=== PATIENT | male | born 1990 | race Caucasian/White ===

== ENCOUNTER 2016-11-03 17:46 | Emergency (ER) | payer OTHER ==
[2016-11-03 18:06] VITALS: BP 146/92
[2016-11-03] MEDS ORDERED: Cephalexin CAP* 500 MG PO ONE (18:27)
--- NOTE | 2016-11-03 18:58 | UC ---
Skin Complaint HPI - HPI Summary HPI Summary: TWO TENDER FIRM AREAS ON RIGHT ABDOMEN ALONG STRETCH TOMPKINS (RECENTLY INTENTIONALLY LOST WEIGHT). NO FEVER. TRIED TO DRAIN THEM HIMSELF WITH OTC DIBETES NEEDLE SEVERAL DAUYS AGO - History of Current Complaint Chief Complaint: UCWounds Time Seen by Provider: 11/03/16 18:14 Stated Complaint: SORE ON STOMACH Hx Obtained From: Patient Onset/Duration: Gradual Onset, Lasting Weeks, Still Present Skin Exposure Onset/Duration: Weeks Ago Onset Severity: Mild Current Severity: Mild Location: Discrete - RIGHT ABDOMEN Character: Redness, Raised, Painful Aggravating: Touch Alleviating: Nothing Associated Signs & Symptoms: Positive: Drainage, Tenderness. Negative: Fever, Chills, Abdominal Pain - Allergy/Home Medications Allergies/Adverse Reactions: Allergies Allergy/AdvReac Type Severity Reaction Status Date / Time No Known Allergies Allergy Verified 11/03/16 18:06 Review of Systems Constitutional: Negative Skin: Other - TWO SMALL INDURATED AREAS ALONG STRETCH JEANETH OF RIGHT ABDOMEN Eyes: Negative ENT: Negative Respiratory: Negative Cardiovascular: Negative Gastrointestinal: Negative Genitourinary: Negative Motor: Negative Neurovascular: Negative Musculoskeletal: Negative Neurological: Negative Psychological: Negative All Other Systems Reviewed And Are Negative: Yes PMH/Surg Hx/FS Hx/Imm Hx Previously Healthy: Yes - Surgical History Surgical History: None - Family History Known Family History: Negative: Diabetes, Other - NO KELOIDS - Social History Occupation: Student Alcohol Use: None Substance Use Type: None Smoking Status (MU): Never Smoked Tobacco Physical Exam Triage Information Reviewed: Yes Appearance: Well-Appearing, No Pain Distress, Well-Nourished Vital Signs: Initial Vital Signs Temp 98 F 11/03/16 18:02 Pulse 96 11/03/16 18:02 Resp 18 11/03/16 18:02 BP 146/92 11/03/16 18:02 Pulse Ox 97 11/03/16 18:02 Vital Signs Reviewed: Yes Eye Exam: Normal ENT Exam: Normal ENT: Positive: Normal ENT inspection Dental Exam: Normal Neck exam: Normal Neck: Positive: Supple, Nontender, No Lymphadenopathy Respiratory Exam: Normal Respiratory: Positive: Chest non-tender, Lungs clear, Normal breath sounds Cardiovascular Exam: Normal Cardiovascular: Positive: RRR, No Murmur Abdomen Description: Positive: Nontender, No Organomegaly, Other: - TWO SMALL INDURATED TENDER AREAS ALONG STRETCH JEANETH OF RIGHT ABDOMEN Musculoskeletal Exam: Normal Neurological Exam: Normal Psychological Exam: Normal Skin: Positive: rashes - TWO SMALL INDURATED TENDER AREAS ALONG STRETCH JEANETH OF RIGHT ABDOMEN Course/Dx - Differential Diagnoses - Skin Complaint Differential Diagnoses: Abscess, Cellulitis, Impetigo, Tinea, Urticaria, Varicella Zoster - Diagnoses Provider Diagnoses: CELLULITIS RIGHT ABDOMEN. ABSCESS RIGHT ABDOMEN Discharge - Discharge Plan Condition: Stable Disposition: HOME Prescriptions: Cephalexin CAP* [Keflex CAP*] 500 mg PO QID #40 cap Patient Education Materials: Cellulitis (ED), Abscess (ED) [facility] - Images Front/Back of Body, Lg ([place]): 1 - 1CM X 0.5 CM INDURATED AREA ON STRETCH JEANETH 2 - 3CM X 2CM INDURATED AREA ALONG STRETCH JEANETH
== END 2016-11-03 19:02 | disposition home or self-care (01) ==
LOC: UCEAST 17:46
DX: L03.311 Cellulitis of abdominal wall (principal); L02.91 Cutaneous abscess, unspecified
CPT/HCPCS: 87070; 87205; 87640; 87641; 99202; A9270-GY; G0463

== ENCOUNTER 2017-01-04 11:12 | Emergency (ER) | payer OTHER ==
[2017-01-04 11:38] VITALS: BP 114/77
--- NOTE | 2017-01-04 12:13 | UC ---
Skin Complaint HPI - HPI Summary HPI Summary: Pt presents to with complaint of "abscess" on right buttock. Pt states had an abscess on his abdomen was draiining + MRSA. Pt states was placed on antibiotics with resolution. Pt states 2 days ago noted a swelling on right buttock. Pt state mild TTP. No drainage. NO fevers, chills, rash. Painful to touch. NO analgesia taken. No change to bowel/bladder. Not immunocompromised. - History of Current Complaint Chief Complaint: UCSkin Time Seen by Provider: 01/04/17 12:11 Stated Complaint: LUMP ON BACK Hx Obtained From: Patient Onset/Duration: Gradual Onset Onset Severity: Mild Current Severity: Mild Pain Intensity: 4 Pain Scale Used: 0-10 Numeric Location: Discrete - right buttock Aggravating: Nothing Alleviating: Nothing Associated Signs & Symptoms: Positive: Negative, Tenderness. Negative: Rash, Drainage - Allergy/Home Medications Allergies/Adverse Reactions: Allergies Allergy/AdvReac Type Severity Reaction Status Date / Time Shellfish Allergy Allergy Intermediate Hives Verified 01/04/17 11:31 Review of Systems Constitutional: Negative Skin: Other - right buttock Eyes: Negative ENT: Negative Respiratory: Negative Cardiovascular: Negative Gastrointestinal: Negative Genitourinary: Negative Motor: Negative Neurovascular: Negative Musculoskeletal: Negative Neurological: Negative Psychological: Negative All Other Systems Reviewed And Are Negative: Yes PMH/Surg Hx/FS Hx/Imm Hx Previously Healthy: Yes - Surgical History Surgical History: None - MRSA abscess - no I+D - Family History Known Family History: Negative: Diabetes, Other - NO KELOIDS - Social History Occupation: Employed Full-time Alcohol Use: None Substance Use Type: None Smoking Status (MU): Never Smoked Tobacco Physical Exam Triage Information Reviewed: Yes Appearance: Well-Appearing, No Pain Distress, Well-Nourished Vital Signs: Initial Vital Signs Temp 98.6 F 01/04/17 11:32 Pulse 79 01/04/17 11:32 Resp 16 01/04/17 11:32 BP 114/77 01/04/17 11:32 Pulse Ox 99 01/04/17 11:32 Vital Signs Reviewed: Yes Eyes: Negative: Discharge ENT: Positive: Hearing grossly normal Neck: Positive: Supple, Nontender Respiratory: Positive: Chest non-tender, Lungs clear, Normal breath sounds Cardiovascular: Positive: RRR, No Murmur, Pulses Normal Abdomen Description: Positive: Nontender, No Organomegaly, Soft Bowel Sounds: Positive: Present Musculoskeletal Exam: Normal Neurological Exam: Normal Psychological Exam: Normal Skin: Positive: Other - right mid buttock, pt with slight inflammed follicle. minimal erythema No drainage, no fluctuance. No induration Course/Dx - Course Course Of Treatment: Pt with small, inflammed follicle right buttock. No drainable collection appreciated on exam. will start Doxycycline. frequent, warm soaks. motirn/apap. return precautions - Diagnoses Provider Diagnoses: folliculitis Discharge - Discharge Plan Condition: Stable Disposition: HOME Prescriptions: DOXYcycline CAP(*) [DOXYcycline 100MG CAP(*)] 100 mg PO BID #14 cap Patient Education Materials: Folliculitis (ED) Referrals: No Primary Care Phys,NOPCP [Primary Care Provider] - Additional Instructions: - Stay well hydrated, drink plenty of non-alcoholic, non-caffinated beverage - Take doxycycline as prescribed until gone - Apply warm, wet soaks to your inflammed area - 3 time a day for 15 minutes - Okay to alternate ibuprofen (Advil, Motrin) and tylenol every 3 hours as needed for pain - take with food - do NOT take for more than 4-5 days - Contact your doctor or review for increased pain, swelling, fevers, or any other concerns
== END 2017-01-04 12:33 | disposition home or self-care (01) ==
LOC: UCEAST 11:12
DX: L73.9 Follicular disorder, unspecified (principal); Z86.14 Personal history of Methicillin resistant Staphylococcus aureus infection; Z91.013 Allergy to seafood
CPT/HCPCS: 99212; G0463

== ENCOUNTER 2017-02-03 15:42 | Emergency (ER) | payer OTHER ==
[2017-02-03 15:56] VITALS: BP 118/72
--- NOTE | 2017-02-03 16:59 | UC ---
Agata Montoya Alok, scribed for Reed Heredia MD on 02/03/17 at 1652 . Skin Complaint HPI - HPI Summary HPI Summary: 26M presents to the [facility] for a rash on his hips bilaterally and buttocks for the past 3 days and spreading since. Pt states that he is fairly active and can' t always change his clothes after sports activity. Pt describes his rash is pruritus. Pt states he applied Cortisone today. Pt denies new soaps or detergents. Pt denies rash on his groin. - History of Current Complaint Chief Complaint: UCSkin Time Seen by Provider: 02/03/17 16:44 Stated Complaint: RASH - Allergy/Home Medications Allergies/Adverse Reactions: Allergies Allergy/AdvReac Type Severity Reaction Status Date / Time Shellfish Allergy Allergy Intermediate Hives Verified 02/03/17 15:49 Review of Systems Constitutional: Negative Skin: Rash All Other Systems Reviewed And Are Negative: Yes PMH/Surg Hx/FS Hx/Imm Hx - Surgical History Surgical History: None - Family History Known Family History: Negative: Diabetes, Other - NO KELOIDS - Social History Occupation: Employed Full-time Alcohol Use: None Substance Use Type: None Smoking Status (MU): Never Smoked Tobacco - Immunization History Most Recent Influenza Vaccination: unsure Most Recent Tetanus Shot: unsure Physical Exam Triage Information Reviewed: Yes Appearance: Well-Appearing, No Pain Distress Vital Signs: Initial Vital Signs Temp 98.5 F 02/03/17 15:50 Pulse 69 02/03/17 15:50 Resp 17 02/03/17 15:50 BP 118/72 02/03/17 15:50 Pulse Ox 99 02/03/17 15:50 Vital Signs Reviewed: Yes Eyes: Positive: Other: - EOMI, YVETTE ENT: Positive: Normal ENT inspection Neck: Positive: Supple, Nontender Respiratory: Positive: Lungs clear, Normal breath sounds Cardiovascular: Positive: RRR Abdomen Description: Positive: Nontender, Soft Bowel Sounds: Positive: Present Musculoskeletal Exam: Normal Musculoskeletal: Positive: Strength Intact, ROM Intact Neurological: Positive: Alert, Other: - Sensory/Motor intact Psychological: Positive: Other: - affect/mood appropriate Skin: Positive: Other - Dry, irritated skin on both buttocks with nothing in the creases. Course/Dx - Course Course Of Treatment: Patient medications reviewed this visit. NO RASH IN CREASES. NO VESICLES OR DRAINAGE. WILL TREAT WITH CLOTRIMAZOLE AND F/U WITH PMD. - Diagnoses Provider Diagnoses: RASH B/L BUTTOCKS. Discharge - Discharge Plan Condition: Stable Disposition: HOME Prescriptions: Clotrimazole 1% CREAM* [Clotrimazole 1%*] 1 applic TOPICAL BID #1 tube Patient Education Materials: Acute Rash (ED) Referrals: No Primary Care Phys,NOPCP [Primary Care Provider] - Additional Instructions: FOLLOW UP WITH YOUR DOCTOR. GET RECHECKED FOR ANY WORSENING OF YOUR CONDITION OR QUESTIONS OR CONCERNS. The documentation as recorded by the Agata gu Alok accurately reflects the service I personally performed and the decisions made by me, Reed Heredia MD.
== END 2017-02-03 17:21 | disposition home or self-care (01) ==
LOC: UCEAST 15:42
DX: R21 Rash and other nonspecific skin eruption (principal)
CPT/HCPCS: 99212; G0463

== ENCOUNTER 2017-08-14 09:20 | Emergency (ER) | payer OTHER ==
[2017-08-14 10:02] VITALS: BP 123/86
--- NOTE | 2017-08-14 10:40 | RAD ---
HISTORY: Productive cough COMPARISONS: None VIEWS: 4: Frontal dual-energy and lateral views of the chest. FINDINGS: CARDIOMEDIASTINAL SILHOUETTE: The cardiomediastinal silhouette is normal. LIVIA: The livia are normal. PLEURA: The costophrenic angles are sharp. No pleural abnormalities are noted. LUNG PARENCHYMA: The lungs are clear. ABDOMEN: The upper abdomen is clear. There is no subphrenic gas. BONES AND SOFT TISSUES: No bone or soft tissue abnormalities are noted. OTHER: None. IMPRESSION: NO ACTIVE CARDIOPULMONARY DISEASE.
[2017-08-14] MEDS ORDERED: Acetaminophen ADULT LIQ* 650 MG/20.3 ML UDC PO ONE (10:45)
--- NOTE | 2017-08-15 18:47 | UC ---
Cezar Montoya Nilda, scribed for Vidal Prado MD on 08/14/17 at 1018 . Respiratory Complaint HPI - HPI Summary HPI Summary: This patient is a 26 year old M presenting to [facility] with a chief complaint of constant nonproductive cough for the past 3 weeks that worsened yesterday. The patient rates the pain 0/10 in severity. Symptoms aggravated and alleviated by nothing. Patient reports congestion and CP with coughing. Patient denies sore throat, and rhinorrhea. Pt states he had a recent trip to [facility] and believes he inhaled a lot of smoke. He was treated with abx recently with no relief. - History of Current Complaint Chief Complaint: UCGeneralIllness Stated Complaint: COUGH, FEVER Time Seen by Provider: 08/14/17 10:09 Hx Obtained From: Patient Onset/Duration: Sudden Onset, Lasting Weeks Timing: Constant Pain Intensity: 0 Pain Scale Used: 0-10 Numeric Character: Cough: Nonproductive Aggravating Factors: Nothing Alleviating Factors: Nothing Associated Signs And Symptoms: Positive: Pleuritic Chest Pain, Nasal Congestion - Allergies/Home Medications Allergies/Adverse Reactions: Allergies Allergy/AdvReac Type Severity Reaction Status Date / Time MS Shellfish Allergy Allergy Intermediate Hives Verified 08/14/17 10:03 [Shellfish Allergy] Dust AdvReac Coughing Uncoded 08/14/17 10:03 Home Medications: Home Medications Cetirizine* [ZyrTEC 10 MG TAB*] 2 tab PO DAILY 08/14/17 [History Confirmed 08/14] Fluticasone NASAL SPRAY 50MCG* [Flonase NASAL SPRAY 50MCG*] 1 spray NASAL DAILY 08/14/17 [History Confirmed 08/14/17] PMH/Surg Hx/FS Hx/Imm Hx - Additional Past Medical History Additional PMH: Jaundice as a child - Surgical History Surgical History: None - Family History Known Family History: Negative: Diabetes, Other - NO KELOIDS - Social History Alcohol Use: None Substance Use Type: None Smoking Status (MU): Never Smoked Tobacco - Immunization History Most Recent Influenza Vaccination: unsure Most Recent Tetanus Shot: unsure Review of Systems ENT: Sinus Congestion, Other - negative sore throat and rhinorrhea Respiratory: Cough Cardiovascular: Chest Pain - with coughing All Other Systems Reviewed And Are Negative: Yes Physical Exam Triage Information Reviewed: Yes Vital Signs: Initial Vital Signs Temp 100.3 F 08/14/17 09:56 Pulse 110 08/14/17 09:56 Resp 20 08/14/17 09:56 BP 123/86 08/14/17 09:56 Pulse Ox 100 08/14/17 09:56 Vital Signs Reviewed: Yes - Additional Comments VITAL SIGNS: Reviewed. GENERAL: Patient is a well developed and nourished M who is lying comfortable in the stretcher. Patient is not in any acute respiratory distress. HEAD AND FACE: Normocephalic EYES: PERRLA, EOMI x 2. EARS: Hearing grossly intact. NOSE: Nasal mucosa erythematous MOUTH: Oropharynx within normal limits. NECK: Supple, trachea is midline, no adenopathy, no JVD, no carotid bruit. CHEST: Symmetric, no tenderness at palpation LUNGS: Clear to auscultation bilaterally. No wheezing or crackles. CVS: Regular rate and rhythm, S1 and S2 present, no murmurs or gallops appreciated. ABDOMEN: Soft, non-tender. Bowel sounds are normal. No abdominal abnormal pulsations. EXTREMITIES: Full ROM in all major joints, no edema, no cyanosis or clubbing. NEURO: Alert and oriented x 3. No acute neurological deficits. Speech is normal and follows commands. SKIN: Dry and warm Diagnostic Evaluation - Laboratory O2 Sat by Pulse Oximetry: 100 - Radiology Radiology Interpretation Completed By: Radiologist - CXR reveals no active cardiopulmonary disease. Dr. Prado has reviewed this radiology report. Respiratory Course/Dx - Course Course Of Treatment: This patient is a 26 year old M presenting to [facility] with a chief complaint of constant nonproductive cough for the past 3 weeks that worsened yesterday. The patient rates the pain 0/10 in severity. Symptoms aggravated and alleviated by nothing. Patient reports congestion and CP with coughing. Patient denies sore throat, and rhinorrhea. Pt states he had a recent trip to [place] and believes he inhaled a lot of smoke. Influenza A positive. Influenza B negative. CXR, per radiolgist, reveals no active cardiopulmonary disease. Dr. Prado has reviewed this radiology report. Pt is stable and will be D/C with a Dx of influenza and a prescription for Tamiflu. In UC, pt was given acetaminophen. I discussed all the findings and test results with the patient. Pt was instructed to return to the urgent care or go to ER immediately if any of the symptoms return or worsens. Plan of care was discussed with the patient and pt understands and agrees. All questions were answered to patient satisfaction. There were no further complaints or concerns. - Differential Dx/Diagnosis Differential Diagnosis/HQI/PQRI: Bronchitis, Influenza, Laryngitis, Sinusitis Provider Diagnoses: Influenza Discharge - Discharge Plan Condition: Stable Disposition: HOME Prescriptions: Oseltamivir CAP* [Tamiflu CAP*] 75 mg PO BID #10 cap Patient Education Materials: Influenza (DC) Forms: *Work Release Referrals: [facility]YS[facility]IAN REFERRAL [Outside] No Primary Care Phys,NOPCP [Primary Care Provider] - Additional Instructions: Take medications as indicated Increase fluid intake The documentation as recorded by the Cezar gu Nilda accurately reflects the service I personally performed and the decisions made by Johan hobbs Walter, MD.
== END 2017-08-14 11:11 | disposition home or self-care (01) ==
LOC: UCEAST 09:20
DX: J11.1 Influenza due to unidentified influenza virus with other respiratory manifestations (principal); Z91.013 Allergy to seafood
CPT/HCPCS: 71046; 87502; 99212; A9270-GY; G0463